=== PATIENT | male | born 1965 | race African-American/Black ===

== ENCOUNTER 2018-12-26 17:47 | Inpatient (IN) | payer MEDICARE, MEDICAID ==
[~2018-12-26 17:47] MED LIST: ISOVUE-370 76%-LOCM 1 ML ONE
[2018-12-26 18:09] LABS: #Lymphocytes 1.3 thou/uL (1.20-3.40); #Monocytes 0.4 thou/uL (0.11-0.59); #Neutrophils 2.4 thou/uL (1.40-6.50); %Basophils 0.7 % (0.0-1.0); %Eosinophils 0.9 % (0.0-10.0); %Lymphocytes 30.5 % (21.0-51.0); %Monocytes 10.1 % (0.0-10.0); %Neutrophils 57.8 % (42.0-75.0); Hemoglobin 13.2 g/dL (14.0-18.0); Mean Corpuscular HGB CONC 32.7 g/dL (32.0-36.0); Mean Corpuscular Volume 91.7 fL (78.0-98.0); Platelet Count 179 thou/uL (130-400); RBC Distribution Width 12.1 % (11.5-14.5); Red Blood Cell (RBC) Count 4.41 mill/uL (4.70-6.10); White Blood Cell (WBC) Count 4.2 thou/uL (4.8-10.8)
[2018-12-26 18:28] LABS: ALT (SGPT) 17 U/L (8-55); AST (SGOT) 21 U/L (5-34); Albumin 4.5 g/dL (3.5-5.0); Alkaline Phosphatase 82 U/L (40-150); Anion Gap 15 mmol/L (10-20); BUN (Urea Nitrogen) 13 mg/dL (8.4-25.7); Bilirubin, Total 0.8 mg/dL (0.2-1.2); Calc. Creatinine Clearance 0 mL/min (70-130); Carbon Dioxide 29 mmol/L (22-29); Chloride 105 mmol/L (98-107); Estimated GFR-MDRD Greater than 90; Globulin 3.2 g/dL (2.4-3.5); Glucose 190 mg/dL (70-105); Lipase 105 U/L (8-78); Potassium 3.8 mmol/L (3.5-5.1); Protein, Total 7.7 g/dL (6.0-8.3); Sodium 145 mmol/L (136-145)
[2018-12-26] MEDS ORDERED: Ondansetron PF 4 MG/2 ML Vial ONE (20:08)
[2018-12-26 20:20] LABS: Bacteria/HPF None Seen HPF (None Seen); Bilirubin Negative (Negative); Blood, Urine Negative (Negative); Clarity Clear (Clear); Glucose, Urine (Dipstick) 500 mg/dL (Negative); Leukocyte Negative Leu/uL (Negative); Mucous/LPF Rare LPF (<2+); Nitrite Negative (Negative); Protein, Urine (Dipstick) 100 mg/dL (Neg-Trace); Squamous Epithelial 0-3 HPF (0-3); Urobilinogen 3 mg/dL (Less than 2)
[2018-12-26 20:26] LABS: Amphetamine Not Detected (NotDetected); Barbiturates Screen Not Detected (NotDetected); Benzodiazepine Screen Not Detected (NotDetected); Cocaine Metabolite Screen Not Detected (NotDetected); Medtox Control Line Valid? VALID (VALID); Medtox Reader # READER 4; Methadone Not Detected (NotDetected); Methamphetamine Not Detected (NotDetected); Opiate Screen Not Detected (NotDetected); Oxycodone Screen Not Detected (NotDetected); Phencyclidine (PCP) Not Detected (NotDetected); THC/Cannabinoid Screen Not Detected (NotDetected); Tricyclic Screen Not Detected (NotDetected)
[2018-12-26 20:30] LABS: RBC/HPF 0-3 HPF (0-3); Sperm/HPF 2+ HPF (None Seen)
--- NOTE | 2018-12-26 21:24 | ULT ---
EXAM: Right upper quadrant ultrasound PROVIDED CLINICAL HISTORY: Epigastric pain COMPARISON: None FINDINGS: Visualized portions of the pancreas appear normal. Liver demonstrates no intrahepatic biliary ductal dilatation. Subcentimeter nonspecific hypoechoic focus in the left hepatic lobe, incompletely characterized sonographically. Common duct is upper limits normal at 6 mm. Gallbladder demonstrates n o stones, wall thickening or pericholecystic fluid. Right kidney demonstrates no hydronephrosis or solid mass. IMPRESSION: Upper limits normal common bile duct. Correlate with laboratory values.
[2018-12-26] MEDS ORDERED: Promethazine HCl 25 MG/ML VIAL ONE (21:34)
[2018-12-26] MEDS ORDERED: Fentanyl 100 MCG/2 ML VIAL ONE (21:34)
--- NOTE | 2018-12-26 22:56 | CT ---
EXAM: CT abdomen and pelvis with IV contrast PROVIDED CLINICAL HISTORY: Abdominal pain COMPARISON: None FINDINGS: Evaluation is limited by patient respiratory motion. The visualized lung bases are free of significant opacity. 1.5 cm enhancing mass posterior segment right hepatic lobe near the dome, likely hemangioma. Nonspeci fic subcentimeter enhancing focus anterior segment right hepatic lobe too small to characterize. Too small to characterize hypodensity right kidney, statistically a cyst. There is fat stranding noted about the pancreatic head and uncinate process. Calcification within the pancreas appears parenchymal rather than duct although this is not completely certain. There is no evidence for appendicitis. No regional lymph node enlargement apparent. The regional major vascular structures appear unremarkab le. The osseous structures demonstrate no concerning lytic or blastic lesions. IMPRESSION: 1. Limited study due to patient respiratory motion. 2. Findings suggesting acute pancreatitis with pancreatic parenchymal calcification versus common justin t stone.
[2018-12-26] MEDS ORDERED: Metoclopramide HCl 10 MG/2 ML VIAL ONE (23:19)
[2018-12-26] MEDS ORDERED: diphenhydrAMINE 50 MG/ML VIAL ONE (23:19)
[2018-12-27 00:58] VITALS: BMI 21.4
[2018-12-27] MEDS ORDERED: Ondansetron PF 4 MG/2 ML Vial IVP PRN ×2 (00:59→05:36)
[2018-12-27] MEDS ORDERED: Ondansetron ODT 4 MG TAB SL PRN ×2 (00:59→05:36)
[2018-12-27] MEDS: Lactated Ringer's 1,000 ML IV SCH ×3 (01:14→05:56)
[2018-12-27] MEDS ORDERED: Morphine 4 MG/ML VIAL SLOW IVP PRN (05:36)
[2018-12-27] MEDS ORDERED: Lorazepam 2 MG/ML VIAL SLOW IVP PRN (07:35)
[2018-12-27] MEDS ORDERED: Acetaminophen 650 MG Suppository PR PRN (07:35)
[2018-12-27] MEDS ORDERED: Dextrose 50% Abboject 50 ML SYRINGE SLOW IVP PRN (07:35)
[2018-12-27] MEDS ORDERED: Dextrose 5% in Water 1,000 ML IV PRN (07:35)
[2018-12-27] MEDS ORDERED: Zolpidem Tartrate 5 MG TAB PO PRN (07:35)
--- NOTE | 2018-12-27 07:56 | HP ---
PRIMARY CARE PHYSICIAN: Dr. Whitehead. HISTORY: The patient referred to [facility] by [facility] for pancreatitis and alcohol abuse. The patient states he drinks too much for 2 to 3 days. He has had mid epigastric pain, nausea, and vomiting. No hematemesis. He has had no bowel movements. He has had no fever or chills. PAST MEDICAL HISTORY: He states he has diabetes. He states he does not have hypertension, is unaware of any other medical problems. He states he takes pills for his diabetes. He denies any drug allergies. PAST SURGICAL HISTORY: Pertinent for umbilical hernia repair. FAMILY HISTORY: Multiple members including 2 siblings have diabetes. SOCIAL HISTORY: Single. Full code status. He states his sister is his next of kin and will be up later. He smokes one pack of cigarettes a day. Drinks greater than 10 beers a day. REVIEW OF SYSTEMS: GENERAL: No headaches, dizziness, or fainting. EYES: He states he has cataracts and decreased vision. No double vision or flashing lights. EAR, NOSE, AND THROAT: No ear pain or drainage. No nasal bleeding. No trouble swallowing. CARDIAC: No chest pain, orthopnea, or paroxysmal nocturnal dyspnea. RESPIRATION: No cough, wheezing, or asthma. GASTROINTESTINAL: See present illness. GENITOURINARY: No hematuria or dysuria. MUSCULOSKELETAL: No pain or swelling in his arms or legs. NEUROLOGICAL: No strokes, seizures, or focal weakness. PSYCHIATRIC: No anxiety or depression. SKIN: No bruising, bleeding, or rash. HEME/LYMPH: No tender or swollen lumps under his skin. No easy bruising. PHYSICAL EXAMINATION: GENERAL: The patient is alert, oriented, demonstrates some intellectual disability. VITAL SIGNS: Blood pressure 122/65, pulse 97, respirations 16, and temperature 98.6. HEAD, EYES, EARS, NOSE, AND THROAT: Reveal pupils are round with cataracts. Extraocular movements are intact. Sclerae are white. Tympanic membranes are clear. Nose clear. Oral mucous membranes are wet. Dental hygiene is fair. NECK: Supple without jugular venous distention, adenopathy, or thyromegaly. CHEST: Clear to auscultation and percussion. HEART: Had regular rate and rhythm. First and second second heart sounds are clear. There are no murmurs or gallops. ABDOMEN: Soft. He was tender in the epigastrium, mildly. Bowel sounds were present. There was no bruit. No hepatosplenomegaly was appreciated. No mass was appreciated. EXTREMITIES: No cyanosis, clubbing, or edema. PULSES: Carotid, radial, femoral, and dorsalis pedis pulses were intact. Pedal pulses were significantly diminished. SKIN: Warm and dry without bruises or rash. HEME/LYMPH: No tender or swollen lymph nodes in the axilla, inguinal, or cervical area. NEUROLOGICAL: Cranial nerves II through XII are intact. Moves all extremities. Deep tendon reflexes are symmetric. IMAGING DATA: Abdominal ultrasound reveals upper limits, normal common bile duct. Gallbladder was unremarkable. CT scan of the abdomen reviewed by me, evidence of pancreatitis. Some calcification over the pancreas. There is an apparent hemangioma in the right liver. EKG; regular sinus rhythm with PACs, nonspecific T-wave changes in anterior precordial leads, otherwise unremarkable reviewed by me. LABORATORY DATA: Lipase is elevated at 105. Blood sugar is 190. Comprehensive metabolic profile, otherwise normal. Toxicology is normal. White count 4.2, platelet count 179,000, and hemoglobin 13.2. ADMITTING DIAGNOSES: 1. Acute pancreatitis. 2. Alcohol abuse. 3. Diabetes mellitus, type 2. 4. Tobacco abuse. 5. Some evidence of peripheral arterial disease. PLAN: 1. N.p.o. 2. IV fluids. 3. Serial lipase. 4. Morphine sulfate for pain. 5. Accu-Cheks and sliding scale. 6. We will check hemoglobin A1c. 7. Obtain home medicines. 8. Discussed case with family member to assess his baseline status, medications, etc. Job ID: [id number]
[2018-12-27 08:03] LABS: Hemoglobin A1c 7.4 % (4.0-6.0)
[2018-12-27] MEDS: Enoxaparin Sodium 40 MG/0.4 ML SYRINGE SC SCH (09:05)
[2018-12-27] MEDS: Multivitamins, Adult 10 ML, Folic Acid 1 MG, Thiamine HCl 100 MG in Dextrose 5 %-0.45 %... IV SCH (09:05)
[2018-12-27] MEDS: Sodium Chloride 0.9% 1,000 ML IV SCH ×4 (09:06→23:35)
[2018-12-28] MEDS: Ondansetron PF 4 MG/2 ML Vial IVP PRN ×2 (03:23→19:40)
[2018-12-28] MEDS: Morphine 4 MG/ML VIAL SLOW IVP PRN ×3 (03:24→19:40)
[2018-12-28 06:03] LABS: Anion Gap 12 mmol/L (10-20); BUN (Urea Nitrogen) 7 mg/dL (8.4-25.7); Calc. Creatinine Clearance 83 mL/min (70-130); Carbon Dioxide 26 mmol/L (22-29); Cardiac Risk 2.4 (Less than 4.5); Chloride 103 mmol/L (98-107); Cholesterol 180 mg/dl (< 200 Desired); Estimated GFR-MDRD Greater than 90; Glucose 102 mg/dL (70-105); HDL Cholesterol 76 mg/dL (>60 Neg Risk); LDL Cholesterol, Calculated 92 mg/dL; Lipase 231 U/L (8-78); Sodium 138 mmol/L (136-145); Triglycerides 61 mg/dL (Less than 150)
[2018-12-28] MEDS: Multivitamins, Adult 10 ML, Folic Acid 1 MG, Thiamine HCl 100 MG in Dextrose 5 %-0.45 %... IV SCH (07:43)
[2018-12-28] MEDS: Sodium Chloride 0.9% 1,000 ML IV SCH ×4 (07:47→23:35)
[2018-12-28] MEDS: Enoxaparin Sodium 40 MG/0.4 ML SYRINGE SC SCH (09:51)
--- NOTE | 2018-12-28 13:21 | PDOC.PN ---
- Subjective Encounter Start Date: 12/28/18 Encounter Start Time: 13:17 Subjective: worse abd pain.no Vomiting . no BM issues -: no fever/chills.pain more in epigastrium - Objective Resuscitation Status - Order Detail: 12/27/18 07:19 Resuscitation Status Routine Resuscitation Status: FULL: Full Resuscitation MAR Reviewed: Yes Vital Signs & Weight: Vital Signs (12 hours) Temp Pulse Resp BP Pulse Ox 12/28/18 11:00 98.7 F 73 16 137/76 97 12/28/18 07:00 98.8 F 74 14 158/86 H 97 12/28/18 03:36 99.1 F 89 16 113/71 99 Weight Admit Weight 121 lb 4 oz Weight 121 lb 4 oz I&O: 12/27/18 12/28/18 12/29/18 06:59 06:59 06:59 Intake Total 1800 Output Total 350 Balance 1450 Result Diagrams: 12/26/18 18:01 12/28/18 04:38 Additional Labs: Accuchecks 12/28/18 12/28/18 12/27/18 10:36 05:57 20:36 POC Glucose 132 H 96 137 H 12/27/18 16:37 POC Glucose 136 H Laboratory Tests 12/26/18 12/28/18 18:01 04:38 Lipase 105 H 231 H Phys Exam - Physical Examination Constitutional: NAD HEENT: PERRLA, moist MMs, sclera anicteric, oral pharynx no lesions Neck: no nodes, no JVD, supple, full ROM Respiratory: no wheezing, no rales, no rhonchi, clear to auscultation bilateral Cardiovascular: RRR, no significant murmur, no rub Gastrointestinal: soft, non-tender, no distention, positive bowel sounds Musculoskeletal: no edema, pulses present Neurological: non-focal, normal sensation, moves all 4 limbs Psychiatric: normal affect, A&O x 3 Skin: no rash Dx/Plan (1) Acute pancreatitis Code(s): K85.90 - ACUTE PANCREATITIS WITHOUT NECROSIS OR INFECTION, UNSP Status: Acute Comment: Lipase higher today. Recheck in AM. cont NPO and IVF.supportive care (2) Abdominal pain Code(s): R10.9 - UNSPECIFIED ABDOMINAL PAIN Status: Acute Comment: Likely due to #1. may be gastritis due to Chronic alcohal abuse. Add PPI (3) Hypokalemia Code(s): E87.6 - HYPOKALEMIA Status: Acute Comment: replace and recheck (4) Alcohol abuse Code(s): F10.10 - ALCOHOL ABUSE, UNCOMPLICATED Status: Chronic (5) DM2 (diabetes mellitus, type 2) Status: Chronic (6) Tobacco abuse Code(s): Z72.0 - TOBACCO USE Status: Chronic - Plan DVT proph w/SCDs HD stable. am labs -: IVF,NPO.PPI BID -: care discussed w family at bedside -: US and CZt results reviewed.if AP not better, repeat CT * . Review of Systems - Review of Systems Constitutional: weakness. negative: fever, chills, sweats, malaise, other Gastrointestinal: Abdominal Pain. negative: Nausea, Vomiting, Diarrhea, Constipation, Melena, Hematochezia, Other Genitourinary: negative: Dysuria, Frequency, Incontinence, Hematuria, Retention , Other Musculoskeletal: negative: Neck Pain, Shoulder Pain, Arm Pain, Back Pain, Hand Pain, Leg Pain, Foot Pain, Other Neurological: negative: Weakness, Numbness, Incoordination, Change in Speech, Confusion, Seizures, Other - Medications/Allergies Allergies/Adverse Reactions: Allergies Allergy/AdvReac Type Severity Reaction Status Date / Time No Known Allergies Allergy Unverified 12/27/18 00:58 Medications: Current Medications Acetaminophen (Tylenol) 650 mg OK Q4H PRN PRN Reason: Headache/Fever/Mild Pain (1-3) Dextrose/Water (Dextrose 50%) 25 gm SLOW IVP PRN PRN PRN Reason: Hypoglycemia Enoxaparin Sodium (Lovenox) 40 mg SC 0900 [facility] Last Admin: 12/28/18 09:51 Dose: 40 mg Glucagon (Glucagon) 1 mg IM PRN PRN PRN Reason: Hypoglycemia Multivitamins 10 ml/ Folic Acid 1 mg/ Thiamine HCl 100 mg / Dextrose/Sodium Chloride 1,011.2 mls @ 250 mls/hr IV Q24HR [facility] Last Admin: 12/28/18 07:43 Dose: 1,011.2 mls Dextrose/Water (D5w) 1,000 mls @ 0 mls/hr IV .Q0M PRN PRN Reason: Hypoglycemia Sodium Chloride (Normal Saline 0.9%) 1,000 mls @ 125 mls/hr IV .Q8H [facility]ARESH Last Admin: 12/28/18 07:47 Dose: Not Given Insulin Human Lispro (Humalog) 0 units SC .MILD SLIDING SCALE PRN PRN Reason: Mild Correctional Scale Lorazepam (Ativan) 0.5 mg SLOW IVP Q6H PRN PRN Reason: Anxiety/Agitation Morphine Sulfate (Morphine) 4 mg SLOW IVP Q4H PRN PRN Reason: Pain Last Admin: 12/28/18 03:24 Dose: 4 mg Ondansetron HCl (Zofran) 4 mg IVP Q6H PRN PRN Reason: Nausea/Vomiting Last Admin: 12/28/18 03:23 Dose: 4 mg Pantoprazole Sodium (Protonix) 40 mg IVP Q12HR NARESH Sodium Chloride (Flush - Normal Saline) 10 ml IVF Q12HR [facility] Last Admin: 12/27/18 21:00 Dose: Not Given Sodium Chloride (Flush - Normal Saline) 10 ml IVF PRN PRN PRN Reason: Saline Flush Zolpidem Tartrate (Ambien) 5 mg PO HSPRN PRN PRN Reason: Insomnia
[2018-12-28] MEDS: Pantoprazole 40 MG VIAL IVP SCH (21:00)
[2018-12-29] MEDS: Morphine 4 MG/ML VIAL SLOW IVP PRN (00:56)
[2018-12-29 02:47] LABS: Anion Gap 9 mmol/L (10-20); BUN (Urea Nitrogen) 6 mg/dL (8.4-25.7); Calc. Creatinine Clearance 87 mL/min (70-130); Calcium 7.9 mg/dL (7.8-10.44); Carbon Dioxide 27 mmol/L (22-29); Chloride 104 mmol/L (98-107); Estimated GFR-MDRD Greater than 90; Glucose 98 mg/dL (70-105); Lipase 72 U/L (8-78); Potassium 3.2 mmol/L (3.5-5.1); Sodium 137 mmol/L (136-145)
[2018-12-29] MEDS: Potassium Chloride 20 MEQ TAB PO SCH ×2 (03:30→04:41)
[2018-12-29] MEDS: Sodium Chloride 0.9% 1,000 ML IV SCH (04:45)
[2018-12-29] MEDS ORDERED: Dextrose 5 % And 0.9 % NaCl 1,000 ML IV SCH (06:30)
[2018-12-29] MEDS ORDERED: traMADol HCl 50 MG TAB PO PRN (09:52)
[2018-12-29] MEDS: Enoxaparin Sodium 40 MG/0.4 ML SYRINGE SC SCH (10:14)
[2018-12-29] MEDS: Pantoprazole 40 MG VIAL IVP SCH ×2 (10:16→20:28)
[2018-12-29] MEDS: Dextrose 5 % And 0.9 % NaCl 1,000 ML IV SCH ×3 (10:18→23:11)
[2018-12-29] MEDS: Multivitamins, Adult 10 ML, Folic Acid 1 MG, Thiamine HCl 100 MG in Dextrose 5 %-0.45 %... IV SCH (10:29)
[2018-12-29] MEDS: HumaLOG 300 UNITS/3 ML VIAL SC PRN ×2 (12:37→16:54)
--- NOTE | 2018-12-29 13:15 | PDOC.PN ---
- Subjective Encounter Start Date: 12/29/18 Encounter Start Time: 13:13 Subjective: feels better but still with some epigastric pain.no N/V/D -: no fever/chills/no blood in stools - Objective Resuscitation Status - Order Detail: 12/27/18 07:19 Resuscitation Status Routine Resuscitation Status: FULL: Full Resuscitation MAR Reviewed: Yes Vital Signs & Weight: Vital Signs (12 hours) Temp Pulse Resp BP BP BP Pulse Ox 12/29/18 11:00 98.4 F 80 16 128/79 94 L 12/29/18 08:15 160/82 H 156/84 H 160/82 H 12/29/18 07:40 97.8 F 68 18 170/84 H 96 Weight Admit Weight 121 lb 4 oz Weight 121 lb 4 oz I&O: 12/28/18 12/29/18 12/30/18 06:59 06:59 06:59 Intake Total 1800 Output Total 350 Balance 1450 Result Diagrams: 12/26/18 18:01 12/29/18 01:48 Additional Labs: Accuchecks 12/29/18 12/29/18 12/28/18 11:14 05:37 20:32 POC Glucose 218 H 78 98 12/28/18 16:33 POC Glucose 114 H Laboratory Tests 12/26/18 12/28/18 12/29/18 18:01 04:38 01:48 Lipase 105 H 231 H 72 Phys Exam - Physical Examination Constitutional: NAD HEENT: PERRLA, moist MMs, sclera anicteric, oral pharynx no lesions Neck: no nodes, no JVD, supple, full ROM Respiratory: no wheezing, no rales, no rhonchi, clear to auscultation bilateral Cardiovascular: RRR, no significant murmur Gastrointestinal: soft, no distention, positive bowel sounds mild epigastric tenderness Musculoskeletal: no edema, pulses present Neurological: non-focal, normal sensation, moves all 4 limbs Psychiatric: normal affect, A&O x 3 Skin: no rash Dx/Plan (1) Acute pancreatitis Code(s): K85.90 - ACUTE PANCREATITIS WITHOUT NECROSIS OR INFECTION, UNSP Status: Acute Comment: Lipase back to normal today. Recheck in AM. start CLD and advance as tolerated (2) Abdominal pain Code(s): R10.9 - UNSPECIFIED ABDOMINAL PAIN Status: Acute Comment: Likely due to #1. may be gastritis due to Chronic alcohal abuse. Add PPI (3) Hypokalemia Code(s): E87.6 - HYPOKALEMIA Status: Acute Comment: replace and recheck (4) Alcohol abuse Code(s): F10.10 - ALCOHOL ABUSE, UNCOMPLICATED Status: Chronic (5) DM2 (diabetes mellitus, type 2) Status: Chronic (6) Tobacco abuse Code(s): Z72.0 - TOBACCO USE Status: Chronic - Plan DVT proph w/SCDs cont PPI.advance diet as tolerated -: likley home in am -: strict alcohal abstinence advised. -: reduce IVF.avoid tylenol * . Review of Systems - Review of Systems Constitutional: negative: fever, chills, sweats, weakness, malaise, other Respiratory: negative: Cough, Dry, Shortness of Breath, Hemoptysis, SOB with Excertion, Pleuritic Pain, Sputum, Wheezing Gastrointestinal: Abdominal Pain. negative: Nausea, Vomiting, Diarrhea, Constipation, Melena, Hematochezia, Other Genitourinary: negative: Dysuria, Frequency, Incontinence, Hematuria, Retention , Other Musculoskeletal: negative: Neck Pain, Shoulder Pain, Arm Pain, Back Pain, Hand Pain, Leg Pain, Foot Pain, Other Neurological: negative: Weakness, Numbness, Incoordination, Change in Speech, Confusion, Seizures, Other - Medications/Allergies Allergies/Adverse Reactions: Allergies Allergy/AdvReac Type Severity Reaction Status Date / Time No Known Allergies Allergy Unverified 12/27/18 00:58 Medications: Current Medications Dextrose/Water (Dextrose 50%) 25 gm SLOW IVP PRN PRN PRN Reason: Hypoglycemia Enoxaparin Sodium (Lovenox) 40 mg SC 0900 [facility] Last Admin: 12/29/18 10:14 Dose: 40 mg Glucagon (Glucagon) 1 mg IM PRN PRN PRN Reason: Hypoglycemia Multivitamins 10 ml/ Folic Acid 1 mg/ Thiamine HCl 100 mg / Dextrose/Sodium Chloride 1,011.2 mls @ 250 mls/hr IV Q24HR [facility] Last Admin: 12/29/18 10:29 Dose: 1,011.2 mls Dextrose/Water (D5w) 1,000 mls @ 0 mls/hr IV .Q0M PRN PRN Reason: Hypoglycemia Dextrose/Sodium Chloride (D5 0.9% Ns) 1,000 mls @ 75 mls/hr IV .[id number] [facility] Last Admin: 12/29/18 10:18 Dose: Not Given Insulin Human Lispro (Humalog) 0 units SC .MILD SLIDING SCALE PRN PRN Reason: Mild Correctional Scale Last Admin: 12/29/18 12:37 Dose: 3 unit Lorazepam (Ativan) 0.5 mg SLOW IVP Q6H PRN PRN Reason: Anxiety/Agitation Morphine Sulfate (Morphine) 4 mg SLOW IVP Q4H PRN PRN Reason: Pain Last Admin: 12/29/18 00:56 Dose: 4 mg Ondansetron HCl (Zofran) 4 mg IVP Q6H PRN PRN Reason: Nausea/Vomiting Last Admin: 12/28/18 19:40 Dose: 4 mg Pantoprazole Sodium (Protonix) 40 mg IVP Q12HR [facility] Last Admin: 12/29/18 10:16 Dose: 40 mg Sodium Chloride (Flush - Normal Saline) 10 ml IVF Q12HR [facility] Last Admin: 12/29/18 10:16 Dose: 10 ml Sodium Chloride (Flush - Normal Saline) 10 ml IVF PRN PRN PRN Reason: Saline Flush Tramadol HCl (Ultram) 50 mg PO Q4H PRN PRN Reason: Moderate to Severe Pain (6-10) Last Admin: 12/29/18 10:41 Dose: 50 mg Zolpidem Tartrate (Ambien) 5 mg PO HSPRN PRN PRN Reason: Insomnia
--- NOTE | 2018-12-29 14:51 | EKG ---
Test Reason : ER INDICATION Blood Pressure : / mmHG Vent. Rate : 061 BPM Atrial Rate : 061 BPM P-R Int : 112 ms QRS Dur : 090 ms QT Int : 412 ms P-R-T Axes : 063 046 043 degrees QTc Int : 414 ms Sinus rhythm with Premature atrial complexes Otherwise normal ECG Confirmed by JULIET STALLINGS M.D. ([id number]), electronic news gathering editor HYACINTH VALERO ([id number]) on 12/29/2018 2:51:05 PM Referred By: Confirmed By:JULIET STALLINGS M.D.
[2018-12-30 05:58] LABS: Anion Gap 9 mmol/L (10-20); BUN (Urea Nitrogen) 4 mg/dL (8.4-25.7); Calc. Creatinine Clearance 87 mL/min (70-130); Calcium 8.2 mg/dL (7.8-10.44); Carbon Dioxide 25 mmol/L (22-29); Chloride 106 mmol/L (98-107); Estimated GFR-MDRD Greater than 90; Glucose 117 mg/dL (70-105); Lipase 64 U/L (8-78); Potassium 3.2 mmol/L (3.5-5.1); Sodium 137 mmol/L (136-145)
[2018-12-30] MEDS: Pantoprazole 40 MG VIAL IVP SCH (08:20)
[2018-12-30] MEDS: Enoxaparin Sodium 40 MG/0.4 ML SYRINGE SC SCH (08:20)
[2018-12-30] MEDS ORDERED: Potassium Chloride 20 MEQ TAB PO SCH (09:00)
[2018-12-30 10:22] VITALS: BP 145/74; TEMP 98.6
[2018-12-30] MEDS: Potassium Chloride 20 MEQ TAB PO SCH (12:38)
--- NOTE | 2018-12-31 11:24 | DIS ---
DATE OF ADMISSION: 12/26/2018 DATE OF DISCHARGE: 12/30/2018 PRIMARY CARE PHYSICIAN: Dr. Whitehead, but the patient is unsure. CONDITION ON DISCHARGE: Condition at the time of discharge, stable and improved. DISCHARGE DISPOSITION: Home. PRIMARY DISCHARGE DIAGNOSIS: Acute pancreatitis. SECONDARY DISCHARGE DIAGNOSES: 1. Alcohol abuse. 2. Suspected alcoholic gastritis. 3. Hypokalemia. 4. Alcohol abuse. 5. Diabetes. 6. Tobacco abuse. DISCHARGE MEDICATIONS: Resume daily and new medication Protonix 40 mg daily for one month. PROCEDURES DONE IN THE HOSPITAL: 1. CT scan of the abdomen and pelvis, which showed acute pancreatitis. 2. Abdominal ultrasound, which shows upper limits of normal CBD 6 mm without any gallbladder stones or cholecystitis. HISTORY OF PRESENTING ILLNESS: Mr. Lake is a 53-year-old male with history of diabetes mellitus, who is a heavy daily drinker, who presented with complaints of abdominal pain and was diagnosed with acute pancreatitis in the CT scan done in the ER. He was admitted for further evaluation and care. Please see admission history and physical dictated by Dr. Traore on the day of admission for full details. His lipase was mildly elevated at 105 upon presentation and he was otherwise hemodynamically stable. HOSPITAL COURSE: The patient was kept n.p.o. and was generously provided IV fluids. Lipase went up a little bit, then eventually subsided and came back down to 64 this morning. The patient was ambulatory and eating a regular meal by this morning. He had some epigastric pain, which improved with addition of proton-pump inhibitor. Most likely this is secondary to alcoholic gastritis. The patient was extensively counseled about alcohol abstinence and he verbalized understanding. He was seen and examined prior to discharge. PHYSICAL EXAMINATION: VITAL SIGNS: This morning, blood pressure 145/75, pulse of 75, saturating 98% on room air. He is afebrile. No acute distress. Awake, alert, and oriented x3. CHEST: Clear to auscultation bilaterally. HEART: Rate and rhythm is regular. ABDOMEN: Soft, nontender, nondistended. FOLLOWUP: He is instructed to follow up with primary care physician in 1 to 2 weeks. Job ID: [id number]
== END 2018-12-30 15:01 | disposition home or self-care (01) | DRG 391 ==
LOC: ERS 17:47 → ONC 23:10
PROVIDERS: ADMIT Family Medicine; ATTEND Family Medicine
DX: K29.20 Alcoholic gastritis without bleeding (principal); K85.90 Acute pancreatitis without necrosis or infection, unspecified; F10.188 Alcohol abuse with other alcohol-induced disorder; F17.210 Nicotine dependence, cigarettes, uncomplicated; E11.51 Type 2 diabetes mellitus with diabetic peripheral angiopathy without gangrene; E87.6 Hypokalemia; Z79.899 Other long term (current) drug therapy; Z79.84 Long term (current) use of oral hypoglycemic drugs; Y90.0 Blood alcohol level of less than 20 mg/100 ml
CPT/HCPCS: 36415; 36416; 74177; 76705; 80048; 80053; 80061; 80306; 80307; 81003; 81015; 82150; 83036; 83690; 84484; 85025; 93005; 96361; 96365; 96375; C9113; J1200; J1650; J2270; J2405; J2550; J2765; J3010; J3411; J7042; Q9966